=== PATIENT | female | born 1995 | race Caucasian/White ===

== ENCOUNTER → 2017-08-25 09:15 | Emergency (ER) | payer OTHER ==
[~2017-08-25 09:15] MED LIST: Aspirin Low Dose CHEW TAB* 81 MG PO ONE
--- NOTE | 2017-08-25 09:28 | ED ---
Back Pain - HPI Summary HPI Summary: Pt here w/ mid thoracic back pain and central chest pain - cannot differentiate if one is main place of pain and radiates to other - both are present at the same time. Pain as been intermittent past few months - worse at night. Has tried Ray back and body w/o relief nor exacerbation. Only thing that helps when she's in severe pain is a warm bath. Denies injury to the area and is not tender to touch or with movement - pain just comes and leaves w/o reason. Denies pain w/ eating/drinking. Denies cough, SOB, bloody cough, fatigue, fever , chills, BOUCHER, neck pain, other back pain or extremity pain, skin changes, urinary or bowel changes. She is here today because pain was 8/10 last night and she had multiple episodes of vomiting. This has subsided to 3-4/10 pain today but pt was concerned and wanted to get checked out. Does not want anything for pain at this time. - History of Current Complaint Chief Complaint: EDBackInjMaegan Stated Complaint: BACK PAIN Time Seen by Provider: 08/25/17 09:27 Hx Obtained From: Patient, Family/Academic Interventionist - male partner Pain Intensity: 5 - Allergies/Home Medications Allergies/Adverse Reactions: Allergies Allergy/AdvReac Type Severity Reaction Status Date / Time No Known Allergies Allergy Verified 08/25/17 09:17 PMH/Surg Hx/FS Hx/Imm Hx Previously Healthy: Yes Endocrine/Hematology History: Denies: Hx Anticoagulant Therapy, Hx Blood Disorders, Hx Diabetes, Hx Thyroid Disease, Hx Anemia, Autoimmune Disease Cardiovascular History: Denies: Hx Aneurysm, Hx Angina, Hx Congenital Heart Disease, Hx Deep Vein Thrombosis, Hx Hypotension, Hx Hypertension, Hx Myocardial Infarction, Hx Rheumatic Fever, Hx Syncope, Hx Valvular Heart Disease Respiratory History: Denies: Hx Asthma, Hx Chronic Obstructive Pulmonary Disease (COPD), Hx Pneumonia, Hx Pulmonary Embolism GI History: Denies: Hx Crohn's Disease, Hx Diverticulosis, Hx Gall Bladder Disease, Hx Gastroesophageal Reflux Disease, Hx Gastrointestinal Bleed, Hx Hiatal Hernia, Hx Ulcer History: Denies: Hx Kidney Infection, Hx Kidney Stones Musculoskeletal History: Denies: Hx Arthritis, Hx Rheumatoid Arthritis, Hx Back Problems, Hx Orthopedic Injury, Hx Osteoporosis, Hx Scoliosis, Hx of Fracture(s) Neurological History: Denies: Hx Peripheral Neuropathy, Hx Spinal Cord Injury Psychiatric History: Denies: Hx Anxiety, Hx Depression Infectious Disease History: No Infectious Disease History: Denies: Traveled Outside the [place] in Last 30 Days - Family History Known Family History: Positive: Hypertension - mom, Other - sister w/ cholecystectomy in her 20's, mom w/ gallbladder stones - Social History Occupation: Employed Part-time - hotel dining room cashier, 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 Negative: Diarrhea, Nausea Genitourinary: Negative Positive: other - LMP Aug 08 - normal - uses condoms for control but not routinely. Negative: burning, dysuria, discharge, frequency, flank pain, hematuria, incontinence, pain, urgency Musculoskeletal: Other - as in HPI Negative: Decreased ROM, Edema Skin: Negative Neurological: Negative Negative: Headache, Weakness, Paresthesia, Numbness, Syncope, Slurred Speech Psychological: Normal All Other Systems Reviewed And Are Negative: Yes Physical Exam Triage Information Reviewed: Yes Vital Signs On Initial Exam: Initial Vitals Temp Pulse Resp BP Pulse Ox 97.3 F 93 16 114/72 100 08/25/17 09:17 08/25/17 09:17 08/25/17 09:17 08/25/17 09:17 08/25/17 09:17 Vital Signs Reviewed: Yes Appearance: Positive: Well-Appearing, Well-Nourished, Pain Distress - appears to be in mild discomfort - moving well Skin: Positive: Warm, Dry Head/Face: Positive: Normal Head/Face Inspection Eyes: Positive: Normal, EOMI, Conjunctiva Clear - anicteric sclera ENT: Positive: Normal ENT inspection, Hearing grossly normal, Pharynx normal - mucosa moist Neck: Positive: Supple - no gross thyromegaly Respiratory/Lung Sounds: Positive: Clear to Auscultation, Breath Sounds Present. Negative: Rales, Rhonchi, Stridor, Tracheal Deviation, Wheezes Cardiovascular: Positive: Normal, RRR, S1, S2. Negative: Murmur, Rub, Leg Edema Left, Leg Edema Right Abdomen Description: Positive: No Organomegaly, Soft, Other: - epigastric, RUQ and RLQ TTP - no rebounding - pt reports this as sharp pain. Negative: CVA Tenderness (R), CVA Tenderness (L) Bowel Sounds: Positive: Present Musculoskeletal: Positive: Strength/ROM Intact - thoracic spinous pp palpated and pt identifies region of pain but palpation does not reproduce pain, Pain @ - pain w/ AP compression of chest; no pain w/ lateral compression Neurological: Positive: Normal, Sensory/Motor Intact, Alert, Oriented to Person Place, Time, CN Intact II-III Psychiatric: Positive: Normal Diagnostics - Vital Signs Vital Signs Temp Pulse Resp BP Pulse Ox 08/25/17 09:17 97.3 F 93 16 114/72 100 - Laboratory Result Diagrams: 08/25/17 09:50 08/25/17 09:50 Lab Statement: Any lab studies that have been ordered have been reviewed, and results considered in the medical decision making process. Back Pain Course/Dx - Diagnoses Provider Diagnoses: Gallstones Discharge - Discharge Plan Condition: Stable Disposition: HOME Patient Education Materials: Gallstones (ED) Forms: *Work Release Referrals: [facility]FERR[facility] [Outside] Gibson Maki MD [Medical Doctor] - Additional Instructions: You appear to have a stone in your gallbladder. This does not appear to be causing acute issues here today and you are able to tolerate oral fluids without difficulty. It is important that you avoid fatty foods and follow-up with general surgery to consult on this condition. Since you have had symptoms for 2 months now, it may be beneficial to have this removed - surgery will discuss with you at appointment. *If you symptoms worsen or return in the meantime, return to ED
[2017-08-25 09:59] LABS: Hematocrit 41 % (35-47); Hemoglobin 13.7 g/dl (12.0-16.0); Mean Corpuscular HGB Conc 34 g/dl (31-36); Mean Corpuscular Hemoglobin 31 pg (27-31); Mean Corpuscular Volume 93 fL (80-97); Mean Platelet Volume 9 um3 (7.4-10.4); Red Blood Count 4.41 10^6/ul (4.0-5.4); Red Cell Distribution Width 13 % (10.5-15); White Blood Count 6.6 10^3/ul (3.5-10.8)
[2017-08-25 10:17] LABS: ALT 21 U/L (7-52); AST 18 U/L (13-39); Albumin 4.2 g/dL (3.2-5.2); Alkaline Phosphatase 60 U/L (34-104); Amylase 44 U/L (29-103); Anion Gap 7 mmol/L (2-11); BUN/Creatinine Ratio 20.6 (8-20); Blood Urea Nitrogen 13 mg/dL (6-24); CO2 Carbon Dioxide 25 mmol/L (22-32); Calcium 9.5 mg/dL (8.6-10.3); Chloride 104 mmol/L (101-111); EGFR African American 153.4 (>60); EGFR Non-African American 119.3 (>60); Globulin 2.6 g/dL (2-4); Glucose 106 mg/dL (70-100); Lipase 13 U/L (11.0-82.0); Magnesium 1.9 mg/dL (1.9-2.7); Potassium 3.9 mmol/L (3.5-5.0); Sodium 136 mmol/L (133-145); Total Protein 6.8 g/dL (6.4-8.9)
--- NOTE | 2017-08-25 10:36 | RAD ---
HISTORY: Right upper quadrant tenderness to palpation COMPARISONS: None TECHNIQUE: Multiple transverse and longitudinal ultrasound images were obtained of the right upper quadrant of the abdomen using grayscale and color Doppler imaging. FINDINGS: LIVER: The liver is normal in shape, size, contour, and echogenicity. There are no focal parenchymal masses. There is normal hepatopedal flow of the portal vein on Doppler imaging. BILIARY TREE: There is no intrahepatic or extrahepatic biliary dilatation. The common duct measures 0.2 cm. GALLBLADDER: A gallstone is noted. There is gallbladder wall thickening. There is no sonographic Villalta's sign PANCREAS: The head of the pancreas is unremarkable. The tail of the pancreas is not well visualized secondary to overlying bowel gas. RIGHT KIDNEY: The right kidney is normal in shape, size, contour, and echogenicity. There is no hydronephrosis or nephrolithiasis. The right kidney measures 11.4 x 3.6 x 4.9 cm. AORTA AND IVC: The aorta and IVC are unremarkable. FLUID: There are no pleural effusions. There is no free fluid within the hepatorenal recess. OTHER FINDINGS: None. IMPRESSION: CHOLELITHIASIS WITH GALLBLADDER WALL THICKENING. THE IMAGING FEATURES ARE INDETERMINATE FOR ACUTE CHOLECYSTITIS.
[2017-08-25 10:57] LABS: TSH (Thyroid Stimulating Horm) 1.45 mcIU/mL (0.34-5.60)
--- NOTE | 2017-08-25 11:44 | RAD ---
INDICATION: Chest pain COMPARISON: None TECHNIQUE: PA and lateral dual-energy views were obtained. FINDINGS: Bones/Soft Tissues: There are no acute bony findings. Cardiomediastinal: The cardiomediastinal silhouette is normal. Lungs: There are no infiltrates. Pleura: There are no pleural effusions. Other: None IMPRESSION: NO ACTIVE DISEASE
[2017-08-25 11:53] LABS: Urine Bilirubin Negative (Negative); Urine Glucose Negative (Negative); Urine Nitrite Negative (Negative)
[2017-08-25 11:56] VITALS: BP 118/79
== END | disposition home or self-care (01) ==
LOC: ED 09:15
DX: K85.10 Biliary acute pancreatitis without necrosis or infection (principal); R07.9 Chest pain, unspecified
CPT/HCPCS: 36415; 71020; 76705; 80053; 81003; 82150; 83605; 83690; 83735; 84443; 84484; 84702; 85025; 85379; 93005; 99282; A9270-GY

== ENCOUNTER 2017-10-31 16:56 | Emergency (ER) | payer OTHER ==
[2017-10-31 19:10] VITALS: BP 133/71
[2017-10-31] MEDS ORDERED: Lidocaine 2% PF * 5 ML VIAL INJ ONE (19:55)
--- NOTE | 2017-10-31 20:00 | UC ---
Laceration HPI - HPI Summary HPI Summary: pt states she reached into the sink and cut her finger on a cup that was broken. c/o cut to her R index finger. denies fb sensation. states able to bend and straighten but not bend all the way due to pain. last tetanus shot was in 2017. Injury occured [place]. - History Of Current Complaint Chief Complaint: UCLaceration Stated Complaint: RIGHT INDEX FINGER LACERATION Time Seen by Provider: 10/31/17 19:48 Hx Obtained From: Patient Hx Last Menstrual Period: last week Laceration Location: Finger - R index Mechanism Of Injury: Sharp Trauma Onset/Duration: Sudden Onset Pain Intensity: 6 Aggravating Factors: Movement - Allergies/Home Medications Allergies/Adverse Reactions: Allergies Allergy/AdvReac Type Severity Reaction Status Date / Time No Known Allergies Allergy Verified 10/31/17 19:02 Home Medications: Home Medications NK [No Home Medications Reported] 10/31/17 [History Confirmed 10/31/17] PMH/Surg Hx/FS Hx/Imm Hx Previously Healthy: Yes Other History Of: Negative For: Anticoagulant Therapy - Surgical History Surgical History: None - Family History Known Family History: Positive: Hypertension - mom, Other - sister w/ cholecystectomy in her 20's, mom w/ gallbladder stones - Social History Alcohol Use: Occasionally Substance Use Type: None Smoking Status (MU): Never Smoked Tobacco - Immunization History Most Recent Tetanus Shot: 2016 Review of Systems Constitutional: Negative Skin: Negative Neurovascular: Negative Musculoskeletal: Decreased ROM Is Patient Immunocompromised?: No All Other Systems Reviewed And Are Negative: Yes Physical Exam Triage Information Reviewed: Yes Appearance: Well-Appearing Vital Signs: Initial Vital Signs Temp 98.2 F 10/31/17 19:04 Pulse 85 10/31/17 19:04 Resp 20 10/31/17 19:04 BP 133/71 10/31/17 19:04 Pulse Ox 100 10/31/17 19:04 Vital Signs Reviewed: Yes Eyes: Positive: Conjunctiva Clear ENT: Positive: Normal ENT inspection Neck: Positive: Supple Respiratory: Positive: Lungs clear, Normal breath sounds Cardiovascular: Positive: RRR, No Murmur Abdomen Description: Positive: Nontender, No Organomegaly, Soft Bowel Sounds: Positive: Present Musculoskeletal: Positive: Other: - 1 cm laceration radial side of PIP joint R index finger. Digit has full s/v/m (against resistance). no bleeding. Rest of hand is unremarkable. Neurological: Positive: Alert Skin Exam: Normal Laceration Repair - Laceration Repair 1 Description: Linear Laceration Size After Repair: Length (cm) - 1CM Contamination/FB Removal: NONE FB, WOUND CLEAN Modified For Repair: No Type Injection: Local Anesthesia Used: 2.0% Lido Cleansing Completed Via Routine Prep: Yes Irrigation With Pressure Irrigation Device: Yes Closure Material: Sutures - 5-0 NYLON Closure Method: Single Layer Suture Of: Skin Suture Type: Nylon - HORIZONTAL AND A SIMPLE Laceration Course/Dx - Course/Dx Course Of Treatment: WOUND REPAIRED, NO FB OR TENDON/LIGAMENT INJURY. PT TOLERATED WELL. - Differential Dx - Laceration/Wound Provider Diagnoses: 1CM LACERATION R INDEX FINGER Discharge - Discharge Plan Condition: Stable Disposition: HOME Patient Education Materials: Finger Laceration (ED) Additional Instructions: RETURN TO THIS FACILITY FOR SUTURE REMOVAL IN 7-10 DAYS OR SOONER NEEDED
== END 2017-10-31 20:55 | disposition home or self-care (01) ==
LOC: UCCORT 16:56
DX: S61.210A Laceration without foreign body of right index finger without damage to nail, initial encounter (principal); W25.XXXA Contact with sharp glass, initial encounter; Y93.89 Activity, other specified; Y92.000 Kitchen of unspecified non-institutional (private) residence as the place of occurrence of the external cause
CPT/HCPCS: 12001; 99211; G0463

== ENCOUNTER 2017-11-10 04:23 | Emergency (ER) | payer OTHER ==
[2017-11-10] MEDS ORDERED: Famotidine IV* 10 MG/ML 2 ML (20 mg) IV SLOW PU ONE (04:37)
[2017-11-10] MEDS ORDERED: Ketorolac INJ* 30 MG/ML 1 ML VIAL IV PUSH ONE (04:37)
[2017-11-10] MEDS ORDERED: Ondansetron INJ* 2 MG/ML VIAL IV ONE (05:06)
[2017-11-10] MEDS ORDERED: Al Hydrox/Mg Hydrox/Simet LIQ* 30 ML UDC PO ONE (05:06)
[2017-11-10 05:19] LABS: ABS Basophils 0 10^3/ul (0-0.2); ABS Eosinophils 0 10^3/ul (0-0.6); ABS Lymphocytes 0.8 10^3/ul (1.0-4.8); ABS Monocytes 0.4 10^3/ul (0-0.8); ABS Neutrophils 5.6 10^3/ul (1.5-7.7); ABS Nucleated RBC 0 10^3/ul; Eosinophil % 0.2 % (0-6); Hematocrit 39 % (35-47); Hemoglobin 13.2 g/dl (12.0-16.0); Lymphocyte % 12.2 % (25-47); Mean Corpuscular HGB Conc 34 g/dl (31-36); Mean Corpuscular Hemoglobin 31 pg (27-31); Mean Corpuscular Volume 91 fL (80-97); Mean Platelet Volume 9 um3 (7.4-10.4); Nucleated Red Blood Cells % 0; Platelet Count 167 10^3/ul (150-450); Red Blood Count 4.24 10^6/ul (4.0-5.4); Red Cell Distribution Width 14 % (10.5-15); White Blood Count 6.9 10^3/ul (3.5-10.8)
[2017-11-10 05:35] LABS: EGFR Non-African American 121.5 (>60)
[2017-11-10 06:24] VITALS: BP 112/65
--- NOTE | 2017-11-10 06:28 | ED ---
Michael Marrufo Julia, scribed for John Conway MD on 11/10/17 at 0509 . Abdominal Pain/Female - HPI Summary HPI Summary: This patient is a 22 year old F presenting to [facility] with a chief complaint of epigastric pain radiating to her mid back since 02:00 today. Patient reports nausea and vomiting. Patient denies low back pain, heart burn, dyspepsia, and RUQ pain. The patient rates the pain 7/10 in severity. She reports her LNMP 10/28/17. Pt has hx of gallstones. - History of Current Complaint Chief Complaint: EDAbdPain Stated Complaint: CHEST PAIN/BACK PAIN Time Seen by Provider: 11/10/17 04:41 Hx Obtained From: Patient Hx Last Menstrual Period: last week Onset/Duration: Lasting Hours Timing: Constant Pain Intensity: 7 Pain Scale Used: 0-10 Numeric Location: Epigastric Radiates: Yes Radiates to: Back Associated Signs and Symptoms: Positive: Nausea, Vomiting. Negative: Other: - low back pain, heart burn, dyspepsia, and RUQ pain Simlar Episode/Dx as:: gallstones Allergies/Adverse Reactions: Allergies Allergy/AdvReac Type Severity Reaction Status Date / Time No Known Allergies Allergy Verified 11/10/17 04:26 PMH/Surg Hx/FS Hx/Imm Hx Endocrine/Hematology History: Denies: Hx Anticoagulant Therapy, Hx Blood Disorders, Hx Diabetes, Hx Thyroid Disease, Hx Anemia Cardiovascular History: Denies: Hx Aneurysm, Hx Angina, Hx Congenital Heart Disease, Hx Deep Vein Thrombosis, Hx Hypotension, Hx Hypertension, Hx Myocardial Infarction, Hx Rheumatic Fever, Hx Syncope, Hx Valvular Heart Disease Respiratory History: Denies: Hx Asthma, Hx Chronic Obstructive Pulmonary Disease (COPD), Hx Pneumonia, Hx Pulmonary Embolism GI History: Denies: Hx Crohn's Disease, Hx Diverticulosis, Hx Gall Bladder Disease, Hx Gastroesophageal Reflux Disease, Hx Gastrointestinal Bleed, Hx Hiatal Hernia, Hx Ulcer History: Denies: Hx Kidney Infection, Hx Kidney Stones Musculoskeletal History: Denies: Hx Arthritis, Hx Rheumatoid Arthritis, Hx Back Problems, Hx Orthopedic Injury, Hx Osteoporosis, Hx Scoliosis Neurological History: Denies: Hx Peripheral Neuropathy, Hx Spinal Cord Injury Psychiatric History: Denies: Hx Anxiety, Hx Depression Infectious Disease History: No Infectious Disease History: Denies: Traveled Outside the [place] in Last 30 Days - Family History Known Family History: Positive: Hypertension - mom, Other - sister w/ cholecystectomy in her 20's, mom w/ gallbladder stones - Social History Alcohol Use: Occasionally Hx Substance Use: No Substance Use Type: Reports: None Hx Tobacco Use: No Smoking Status (MU): Never Smoked Tobacco Review of Systems Gastrointestinal: Negative - dyspepsia and RUQ pain Positive: Abdominal Pain, Vomiting, Nausea Musculoskeletal: Negative - low back pain Positive: Myalgia - bakc pain All Other Systems Reviewed And Are Negative: Yes Physical Exam - Summary Physical Exam Summary: Appearance: Well appearing, no pain distress Skin: warm, dry, reflects adequate perfusion Head/face: normal Eyes: EOMI, NINO ENT: moist mucous membranes Neck: supple, non-tender Respiratory: CTA, breath sounds present Cardiovascular: RRR, pulses symmetrical Abdomen: mild epigastric pain to deep palpation, soft Bowel: present Musculoskeletal: normal, strength/ROM intact Neuro: normal, sensory motor intact, A&Ox3 Triage Information Reviewed: Yes Vital Signs On Initial Exam: Initial Vitals Temp Pulse Resp BP Pulse Ox 97.2 F 71 16 115/70 99 11/10/17 04:24 11/10/17 04:24 11/10/17 04:24 11/10/17 04:24 11/10/17 04:24 Vital Signs Reviewed: Yes Diagnostics - Vital Signs Vital Signs Temp Pulse Resp BP Pulse Ox 11/10/17 04:24 97.2 F 71 16 115/70 99 - Laboratory Lab Results: Lab Results 11/10/17 11/10/17 Range/Units 05:06 05:06 WBC 6.9 (3.5-10.8) 10^3/ul RBC 4.24 (4.0-5.4) 10^6/ul Hgb 13.2 (12.0-16.0) g/dl Hct 39 (35-47) % MCV 91 (80-97) fL MCH 31 (27-31) pg MCHC 34 (31-36) g/dl RDW 14 (10.5-15) % Plt Count 167 (150-450) 10^3/ul MPV 9 (7.4-10.4) um3 Neut % (Auto) 81.1 (38-83) % Lymph % (Auto) 12.2 L (25-47) % Bertie % (Auto) 5.9 (1-9) % Eos % (Auto) 0.2 (0-6) % Baso % (Auto) 0.6 (0-2) % Absolute Neuts (auto) 5.6 (1.5-7.7) 10^3/ul Absolute Lymphs (auto) 0.8 L (1.0-4.8) 10^3/ul Absolute Monos (auto) 0.4 (0-0.8) 10^3/ul Absolute Eos (auto) 0 (0-0.6) 10^3/ul Absolute Basos (auto) 0 (0-0.2) 10^3/ul Absolute Nucleated RBC 0 10^3/ul Nucleated RBC % 0 Sodium 133 (133-145) mmol/L Potassium 3.6 (3.5-5.0) mmol/L Chloride 101 (101-111) mmol/L Carbon Dioxide 25 (22-32) mmol/L Anion Gap 7 (2-11) mmol/L BUN 18 (6-24) mg/dL Creatinine 0.62 (0.51-0.95) mg/dL Est GFR ( Amer) 156.3 (>60) Est GFR (Non-Af Amer) 121.5 (>60) BUN/Creatinine Ratio 29.0 H (8-20) Glucose 127 H (70-100) mg/dL Calcium 9.2 (8.6-10.3) mg/dL Total Bilirubin 0.50 (0.2-1.0) mg/dL AST 21 (13-39) U/L ALT 24 (7-52) U/L Alkaline Phosphatase 49 (34-104) U/L Total Protein 6.8 (6.4-8.9) g/dL Albumin 4.3 (3.2-5.2) g/dL Globulin 2.5 (2-4) g/dL Albumin/Globulin Ratio 1.7 (1-3) Lipase 11 (11.0-82.0) U/L Result Diagrams: 11/10/17 05:06 11/10/17 05:06 Lab Statement: Any lab studies that have been ordered have been reviewed, and results considered in the medical decision making process. - Additional Comments Diagnostic Additional Comments: Bedside US of gallbladder reveals no wall thickening, a singular small gallstone , negative sonographic Villalta's, and no fluid build up. Re-Evaluation - Re-Evaluation First Eval Change: Improved - sx resolved with gi tx. Abdominal Pain Fem Course/Dx - Course Course Of Treatment: epigastric pain without RUQ pain. Tx with gi tx and toradol with full relief. Likely gastritis. Bedside US shows no sono Villalta, evidence of acute GB dz. Tx symp, given pcp referally for f/u. - Diagnoses Differential Diagnosis: Positive: Constipation, Gall Bladder Disease, Irritable Bowel Syndrome, Pancreatitis, Other - gastritis Provider Diagnoses: Epigastric abdominal pain, Acute gastritis Discharge - Discharge Plan Condition: Good Disposition: HOME Prescriptions: Famotidine TAB* [Pepcid 20 MG TAB*] 20 mg PO BID #20 tab Sucralfate TAB* [Carafate*] 1 gm PO QID #40 tab Patient Education Materials: Gastritis (ED) Referrals: [facility] [place] [facility]ERR[facility] [Outside] Additional Instructions: Avoid spicy foods, fatty foods, ibuprofen, caffeine and alcohol. You may need a HIDA scan to further evaluate the gallbladder. Return if worse, new symptoms or other concerns. Call the number given to establish and follow up with a doctor. The documentation as recorded by the Michael armstrong Julia accurately reflects the service I personally performed and the decisions made by me, John Conway MD.
== END 2017-11-10 06:20 | disposition home or self-care (01) ==
LOC: ED 04:23
DX: R10.13 Epigastric pain (principal); K29.00 Acute gastritis without bleeding
CPT/HCPCS: 36415; 80053; 83690; 85025; 96374; 96375; 96376; 99282; A9270-GY; J1885; J2405

== ENCOUNTER 2017-11-30 09:08 | Emergency (ER) | payer BC, OTHER ==
[2017-11-30] MEDS ORDERED: Famotidine IV* 10 MG/ML 2 ML (20 mg) IV SLOW PU ONE (10:13)
[2017-11-30] MEDS ORDERED: Al Hydrox/Mg Hydrox/Simet LIQ* 30 ML UDC PO ONE (10:14)
[2017-11-30] MEDS ORDERED: NS 0.9% 1000 ML* 1,000 ML IV ONE (10:16)
[2017-11-30 10:26] LABS: ABS Basophils 0 10^3/ul (0-0.2); ABS Eosinophils 0 10^3/ul (0-0.6); ABS Lymphocytes 0.6 10^3/ul (1.0-4.8); ABS Monocytes 0.4 10^3/ul (0-0.8); ABS Neutrophils 5.6 10^3/ul (1.5-7.7); ABS Nucleated RBC 0 10^3/ul; Eosinophil % 0.2 % (0-6); Hematocrit 40 % (35-47); Hemoglobin 13.5 g/dl (12.0-16.0); Lymphocyte % 8.8 % (25-47); Mean Corpuscular HGB Conc 34 g/dl (31-36); Mean Corpuscular Hemoglobin 31 pg (27-31); Mean Corpuscular Volume 92 fL (80-97); Mean Platelet Volume 9 um3 (7.4-10.4); Nucleated Red Blood Cells % 0; Platelet Count 178 10^3/ul (150-450); Red Blood Count 4.33 10^6/ul (4.0-5.4); Red Cell Distribution Width 14 % (10.5-15); White Blood Count 6.6 10^3/ul (3.5-10.8)
[2017-11-30 10:47] LABS: EGFR Non-African American 123.8 (>60)
--- NOTE | 2017-11-30 11:23 | RAD ---
Indication: Epigastric pain. History of cholelithiasis. Comparison: August 25, 2017 Technique: RIGHT upper quadrant ultrasound. Report: Appropriate direction flow documented in the portal and hepatic veins. 16.6 cm liver is normal in echogenicity. Negative for focal hepatic lesions. Negative for intrahepatic biliary dilatation. 5.1 mm common bile duct. No conspicuous stones in the visualized segment of the common bile duct. Adequately distended gallbladder with immobile 1.1 cm stone at the gallbladder neck/cystic duct. Additional immobile stone at the fundus of the gallbladder. Biliary sludge. Thickened gallbladder wall measuring 6.9 mm. Negative for pericholecystic fluid or sonographic Villalta's sign. Unremarkable well visualized pancreas. Negative for ascites. 12.2 cm RIGHT kidney is unremarkable. IMPRESSION: Thickened gallbladder wall and nonmobile 1.1 cm stone at the gallbladder neck or cystic duct. Consider early acute cholecystitis. Negative for biliary dilatation.
--- NOTE | 2017-11-30 11:24 | ED ---
Abdominal Pain/Female - HPI Summary HPI Summary: Patient is a 22-year-old female presenting to the ED for the third time in 3 months with a chief complaint of epigastric pain which radiates to the back. Pain is rated a 5 out of 10 in severity, intermittent, worse at night and not associated with food. Endorses nausea, denies vomiting. On first visit to the ED in August, patient was diagnosed with cholelithiasis without cholangitis and was referred to a general surgeon. She did not follow-up and returned 2 months later with similar complaint. Bedside ultrasound did not show cholelithiasis at that time, patient was given sucralfate and famotidine with relief. Patient is otherwise healthy and takes no medications. Denies significant alcohol use. Denies drug use. Pain is discretely located over the epigastric region with radiation to the back, denies any pain to the other 4 quadrants. Denies constipation or diarrhea. Rest menstrual cycle 2 weeks ago. - History of Current Complaint Chief Complaint: EDAbdPain Stated Complaint: BACK PAIN,VOMITING Time Seen by Provider: 11/30/17 09:45 Hx Obtained From: Patient Hx Last Menstrual Period: last week ?: No Onset/Duration: Sudden Onset Timing: Constant Severity Initially: Moderate Severity Currently: Moderate Pain Intensity: 6 Pain Scale Used: 0-10 Numeric Location: Epigastric Radiates: Yes Radiates to: Back Character: Burning, Cramping Aggravating Factor(s): Nothing Alleviating Factor(s): Nothing Associated Signs and Symptoms: Positive: Back Pain. Negative: Diaphoresis, Fever, Cough, Chest Pain, Dizzy, Constipation, Blood in Stool, Urinary Symptoms , Decreased Appetite, Vaginal Bleeding, Vaginal Discharge, Nausea, Vomiting, Diarrhea - Risk Factors Ectopic Risk Factor: Negative Ovarian Torsion Risk Factor: Reproductive Age Allergies/Adverse Reactions: Allergies Allergy/AdvReac Type Severity Reaction Status Date / Time No Known Allergies Allergy Verified 11/10/17 04:26 PMH/Surg Hx/FS Hx/Imm Hx Previously Healthy: Yes Endocrine/Hematology History: Denies: Hx Anticoagulant Therapy, Hx Blood Disorders, Hx Diabetes, Hx Thyroid Disease, Hx Anemia Cardiovascular History: Denies: Hx Aneurysm, Hx Angina, Hx Congenital Heart Disease, Hx Deep Vein Thrombosis, Hx Hypotension, Hx Hypertension, Hx Myocardial Infarction, Hx Rheumatic Fever, Hx Syncope, Hx Valvular Heart Disease Respiratory History: Denies: Hx Asthma, Hx Chronic Obstructive Pulmonary Disease (COPD), Hx Pneumonia, Hx Pulmonary Embolism GI History: Denies: Hx Crohn's Disease, Hx Diverticulosis, Hx Gall Bladder Disease, Hx Gastroesophageal Reflux Disease, Hx Gastrointestinal Bleed, Hx Hiatal Hernia, Hx Ulcer History: Denies: Hx Kidney Infection, Hx Kidney Stones Musculoskeletal History: Denies: Hx Arthritis, Hx Rheumatoid Arthritis, Hx Back Problems, Hx Orthopedic Injury, Hx Osteoporosis, Hx Scoliosis Neurological History: Denies: Hx Peripheral Neuropathy, Hx Spinal Cord Injury Psychiatric History: Denies: Hx Anxiety, Hx Depression - Immunization History Hx Pertussis Vaccination: No Immunizations Up to Date: Unable to Obtain/Confirm Infectious Disease History: No Infectious Disease History: Denies: Traveled Outside the [place] in Last 30 Days - Family History Known Family History: Positive: Hypertension - mom, Other - sister w/ cholecystectomy in her 20's, mom w/ gallbladder stones - Social History Occupation: Unemployed Lives: With Family Alcohol Use: Occasionally Hx Substance Use: No Substance Use Type: Reports: None Hx Tobacco Use: No Smoking Status (MU): Never Smoked Tobacco Review of Systems Constitutional: Negative Negative: Fever, Chills, Fatigue, Skin Diaphoresis Eyes: Negative Cardiovascular: Negative Positive: Abdominal Pain - epigastric pain Positive: no symptoms reported, see HPI Musculoskeletal: Negative Neurological: Negative All Other Systems Reviewed And Are Negative: Yes Physical Exam Triage Information Reviewed: Yes Vital Signs On Initial Exam: Initial Vitals Temp Pulse Resp BP Pulse Ox 98.3 F 73 18 120/76 100 11/30/17 09:24 11/30/17 09:24 11/30/17 09:24 11/30/17 09:24 11/30/17 09:24 Vital Signs Reviewed: Yes Appearance: Positive: Well-Appearing, Well-Nourished Skin: Positive: Warm, Skin Color Reflects Adequate Perfusion Head/Face: Positive: Normal Head/Face Inspection Eyes: Positive: EOMI, NINO, Conjunctiva Clear Neck: Positive: Supple, No Lymphadenopathy Respiratory/Lung Sounds: Positive: Clear to Auscultation, Breath Sounds Present Cardiovascular: Positive: Normal, RRR, Pulses are Symmetrical in both Upper and Lower Extremities Musculoskeletal: Positive: Normal, Strength/ROM Intact Neurological: Positive: Speech Normal Psychiatric: Positive: Normal, Affect/Mood Appropriate Diagnostics - Vital Signs Vital Signs Temp Pulse Resp BP Pulse Ox 11/30/17 10:00 74 110/63 99 03/12/18 09:51 84 98 11/30/17 09:49 119/67 11/30/17 09:24 98.3 F 73 18 120/76 100 - Laboratory Lab Results: Lab Results 11/30/17 11/30/17 11/30/17 Range/Units 10:17 10:17 10:17 WBC 6.6 (3.5-10.8) 10^3/ul RBC 4.33 (4.0-5.4) 10^6/ul Hgb 13.5 (12.0-16.0) g/dl Hct 40 (35-47) % MCV 92 (80-97) fL MCH 31 (27-31) pg MCHC 34 (31-36) g/dl RDW 14 (10.5-15) % Plt Count 178 (150-450) 10^3/ul MPV 9 (7.4-10.4) um3 Neut % (Auto) 84.8 H (38-83) % Lymph % (Auto) 8.8 L (25-47) % [place] % (Auto) 5.5 (0-7) % Eos % (Auto) 0.2 (0-6) % Baso % (Auto) 0.7 (0-2) % Absolute Neuts (auto) 5.6 (1.5-7.7) 10^3/ul Absolute Lymphs (auto) 0.6 L (1.0-4.8) 10^3/ul Absolute Monos (auto) 0.4 (0-0.8) 10^3/ul Absolute Eos (auto) 0 (0-0.6) 10^3/ul Absolute Basos (auto) 0 (0-0.2) 10^3/ul Absolute Nucleated RBC 0 10^3/ul Nucleated RBC % 0 ESR Pending Sodium 135 (133-145) mmol/L Potassium 4.3 (3.5-5.0) mmol/L Chloride 103 (101-111) mmol/L Carbon Dioxide 25 (22-32) mmol/L Anion Gap 7 (2-11) mmol/L BUN 15 (6-24) mg/dL Creatinine 0.61 (0.51-0.95) mg/dL Est GFR ( Amer) 159.2 (>60) Est GFR (Non-Af Amer) 123.8 (>60) BUN/Creatinine Ratio 24.6 H (8-20) Glucose 91 (70-100) mg/dL Lactic Acid 0.6 (0.5-2.0) mmol/L Calcium 9.4 (8.6-10.3) mg/dL Magnesium 1.9 (1.9-2.7) mg/dL Total Bilirubin 0.70 (0.2-1.0) mg/dL Direct Bilirubin 0.10 (0.03-0.18) mg/dL Indirect Bilirubin 0.6 (0.3-1.0) mg/dL AST 20 (13-39) U/L ALT 26 (7-52) U/L Alkaline Phosphatase 56 (34-104) U/L C-Reactive Protein < 1.00 (< 5.00) mg/L Total Protein 6.9 (6.4-8.9) g/dL Albumin 4.3 (3.2-5.2) g/dL Globulin 2.6 (2-4) g/dL Albumin/Globulin Ratio 1.7 (1-3) Amylase 41 (29-103) U/L Lipase 12 (11.0-82.0) U/L Beta HCG, Quant < 0.60 mIU/mL Result Diagrams: 11/30/17 10:17 11/30/17 10:17 Lab Statement: Any lab studies that have been ordered have been reviewed, and results considered in the medical decision making process. Abdominal Pain Fem Course/Dx - Course Course Of Treatment: During the course of treatment, labs obtained including total and direct bilirubin as well as lipase and amylase. All these were normal. Bedside ultrasound did not reveal obvious cholelithiasis and patient is sent to ultrasound of the gallbladder. She is given Maalox by mouth and famotidine IV as well as a liter of fluids. IMPRESSION: Thickened gallbladder wall and nonmobile 1.1 cm stone at the gallbladder neck. or cystic duct. Consider early acute cholecystitis. Negative for biliary dilatation. Discussed case with Dr. Alejo who agrees to see patient in his office on Thursday. Likely surgery next week. Patient is made aware and is agreeable to discharge. I've given her Zofran. She is to stay on a nonfatty diet until surgery. - Diagnoses Provider Diagnoses: Cholelithiases Discharge - Discharge Plan Condition: Stable Disposition: HOME Prescriptions: Ondansetron ODT TAB* [Zofran 4 MG Odt TAB*] 4 mg PO Q6H PRN #12 tab.odt MDD 4 PRN Reason: Nausea Patient Education Materials: Gallstones (ED) Forms: *Work Release Referrals: No Primary Care Phys,NOPCP [Primary Care Provider] - Dm Alejo MD [Medical Doctor] - Additional Instructions: Please follow-up with PCP Follow-up with Dr. Alejo He is able to see you in the office on Thursday Call this afternoon to make an appointment I have given you a prescription for Zofran if you have symptoms of nausea Until follow-up, eat a low-fat diet
[2017-11-30 12:03] LABS: Urine Appearance Clear; Urine Blood Negative (Negative); Urine Color Yellow; Urine Ketones Trace (Negative); Urine Protein Negative (Negative); Urine Specific Gravity 1.012 (1.010-1.030); Urine Urobilinogen Negative (Negative)
[2017-11-30 12:04] VITALS: BP 120/72
--- NOTE | 2017-12-02 21:46 | ED ---
Progress - Progress Note Progress Note: Patient's preliminary urine culture reveals greater than 100,000 Escherichia coli. Patient was discharged with diagnosis of gallstones and provided with Zofran. Will await final results before contacting patient to update symptoms and prescribed medication based on sensitivities as appropriate. Course/Dx - Course Course Of Treatment: During the course of treatment, labs obtained including total and direct bilirubin as well as lipase and amylase. All these were normal. Bedside ultrasound did not reveal obvious cholelithiasis and patient is sent to ultrasound of the gallbladder. She is given Maalox by mouth and famotidine IV as well as a liter of fluids. IMPRESSION: Thickened gallbladder wall and nonmobile 1.1 cm stone at the gallbladder neck. or cystic duct. Consider early acute cholecystitis. Negative for biliary dilatation. Discussed case with Dr. Alejo who agrees to see patient in his office on Thursday. Likely surgery next week. Patient is made aware and is agreeable to discharge. I've given her Zofran. She is to stay on a nonfatty diet until surgery. - Diagnoses Provider Diagnoses: Cholelithiases
== END 2017-11-30 12:05 | disposition home or self-care (01) ==
LOC: ED 09:08
DX: K80.20 Calculus of gallbladder without cholecystitis without obstruction (principal); M54.9 Dorsalgia, unspecified; R10.13 Epigastric pain
CPT/HCPCS: 36415; 76705; 80053; 81003; 81015; 82150; 82247; 82248; 83605; 83690; 83735; 84702; 85025; 85652; 86140; 87077; 87086; 87186; 99282; A9270-GY

== ENCOUNTER 2017-12-07 07:25 | Day surgery (SDC) | payer BC ==
[~2017-12-07 07:25] MED LIST changes: -Aspirin Low Dose CHEW TAB* 81 MG PO ONE; +Buffered Lidocaine 0.9% SYRIN* 5 ML/SYR SYRINGE INTRADERM ONE; +DiMENhydriNATE IV* 50 MG/ML VIAL IV PUSH PRN; +Famotidine IV* 10 MG/ML 2 ML (20 mg) IV ONE; +Morphine INJ* 2 MG/ML 1 ML CARPUJECT IV PRN; +Naloxone* 0.4 MG/ML 1 ML VIAL IV PRN; +PROCHLORPERAZINE INJ 5 MG/ML 2 ML VIAL IV PRN; +Scopolamine 1.5 mg* PATCH TRANSDERM PRN; +oxyCODONE/Acetamin 5/325 MG* TAB PO PRN
[2017-12-07] MEDS ORDERED: Buffered Lidocaine 0.9% SYRIN* 5 ML/SYR SYRINGE ONE (07:34)
[2017-12-07] MEDS ORDERED: ceFAZolin 2 GM (*##) 2 GM/100 ML BAG USE CEFA2SOL IVPB ONE (07:34)
[2017-12-07] MEDS ORDERED: Famotidine IV* 10 MG/ML 2 ML (20 mg) ONE (07:34)
[2017-12-07] MEDS ORDERED: Bupivacaine 0.25% SDV* 30 ML ONE (08:46)
--- NOTE | 2017-12-07 10:19 | OP ---
Operative Report - Blank - Operative Report Date of Operation: 12/07/17 Note: Preop Dx: symptomatic cholelithiasis Postop Dx: same Procedure: laparoscopic cholecystectomy Anesthesia: EVY Surgeon: Melo Asst: ORLIN Pretty; DALLAS Kang Fluids: 1500 ml RL EBL: none Drains:none Specimen: gallbladder Findings: dictated
[2017-12-07] MEDS ORDERED: Acetaminophen TAB* 325 MG PO PRN (10:20)
[2017-12-07] MEDS ORDERED: fentaNYL* 50 MCG/ML 2 ML VIAL (100 MCG VIAL) ONE (11:15)
[2017-12-07] MEDS: fentaNYL* 50 MCG/ML 2 ML VIAL (100 MCG VIAL) IV PRN ×2 (11:16→11:24)
[2017-12-07] MEDS ORDERED: oxyCODONE/Acetamin 5/325 MG* TAB ONE (11:16)
[2017-12-07 11:53] VITALS: BP 121/67
--- NOTE | 2017-12-08 17:28 | OP ---
DATE OF OPERATION: 12/07/17 - [facility] DATE OF : [birth year] SURGEON: Dm Alejo MD. CAT SWAMPER: ORLIN Farmer. ANESTHESIOLOGIST: Dr. Hartley. ANESTHESIA: General. PRE-OP DIAGNOSIS: Right upper quadrant abdominal pain and gallstones. POST-OP DIAGNOSIS: Right upper quadrant abdominal pain and gallstones. OPERATIVE PROCEDURE: Laparoscopic cholecystectomy. ESTIMATED BLOOD LOSS: Minimal. WOUND CLASSIFICATION: 2. COMPLICATIONS: None. SPECIMEN: None. DRAINS: None. SPECIMENS: Gallbladder containing gallstones. FINDINGS: As above. DESCRIPTION OF PROCEDURE: Written informed consent was obtained, the abdomen was marked with indelible ink and preoperative antibiotics were administered. The patient was taken to the operating room and placed in the supine position. Sequential compression devices and a warming blanket were applied. General anesthesia was administered and the abdomen was prepped and draped in the usual sterile fashion. Time-out verification was completed. Initially a small vertical incision was made just at the umbilicus and slightly below at the midline. The peritoneal cavity was entered under direct vision. A 12-mm blunt port was inserted and the abdomen was insufflated to 15 mmHg. Under direct vision, an 11-mm epigastric port was placed and two 5-mm ports were placed in the right side of the abdominal wall. The gallbladder was identified. It was nondistended and appeared to be of normal color and texture, without evidence of acute or chronic inflammation. The liver appeared to be unremarkable. Gallbladder was grasped and elevated up over the liver bed. Dissection commenced at the infundibular area and the peritoneum, along the medial and lateral aspects of the gallbladder, was taken down to expose the cystic duct and artery as they entered the gallbladder. The cystic duct appeared to be of expected and normal caliber. I took a considerable portion of the inferior part of the gallbladder off the liver bed using the critical view technique to assure myself of these two structures as they entered the gallbladder. The cystic duct and artery were then doubly clipped and divided. The gallbladder was completely removed from the liver bed using the cautery device and placed in an EndoCatch bag and brought out through the umbilical incision. There were several large gallstones in the neck of the gallbladder. Gallbladder fossa was evacuated and hemostasis was assured. All ports were removed under direct vision of the camera. There was no abdominal wall bleeding. The umbilical fascia was closed with interrupted 0 Polysorb suture. The skin at all four incisions were approximated with subcuticular 4-0 Polysorb suture. Steri-Strips were applied. The patient tolerated the procedure well, was taken to the recovery room in stable condition. [id number]/[facility] #: [id number] [facility] HOSPITALMatt
[2017-12-10] MEDS ORDERED: Scopolamine PATCH Remove* 1 NOTE MISC PATCH OFF ONE (05:53)
== END 2017-12-07 12:07 | disposition home or self-care (01) ==
LOC: OR 07:25
PROVIDERS: ATTEND Surgery
DX: K80.20 Calculus of gallbladder without cholecystitis without obstruction (principal)
CPT/HCPCS: 81025; 88304; A9270-GY; J3010